=== PATIENT | male | born 1980 ===

== ENCOUNTER 2021-02-25 18:52 | Emergency (ER) | payer BC, SELFPAY ==
[2021-02-25] VITALS (14 sets, daily range): BP systolic 111–145; BP diastolic 70–91; PULSE 53–68; RESP 8–27; TEMP 36.2; O2SAT 96–99; BMI 28.2
--- NOTE | 2021-02-25 19:08 | DI.RAD.S_ITS ---
PROCEDURE: XR CHEST 1V INDICATIONS: chest pain TECHNIQUE: One view of the chest was acquired. COMPARISON: None. FINDINGS: Surgical changes and devices: None. Lungs and pleura: Lungs are clear. No pleural effusions or pneumothorax. Mediastinum: Mediastinal contours appear normal. Heart size is normal. Bones and chest wall: No suspicious bony lesions. Overlying soft tissues appear unremarkable. IMPRESSION: No acute cardiopulmonary abnormality Dictated by: Eliel Buckner M.D. on 02/25/2021 at 19:43 Approved by: Eliel Buckner M.D. on 02/25/2021 at 19:43
[2021-02-25 19:52] LABS: Add Manual Diff / Slide Review NO; Basophils Absolute Auto 0 /uL (0-100); Eosinophils Absolute Auto 200 /uL (0-450); Eosinophils Percent Auto 4.9 % (2-4); Hematocrit 40.7 % (41-53); Hemoglobin 14.2 g/dL (13.5-17.5); Lymphocytes Absolute Auto 1400 /uL (1100-4500); Lymphocytes Percent Auto 31.8 % (25-40); Mean Corpuscular HGB Conc 34.9 % (30-36); Mean Corpuscular Hemoglobin 29.9 PG (26-34); Mean Corpuscular Volume 85.8 fL (80-100); Monocytes Absolute Auto 500 /uL (0-900); Monocytes Percent Auto 10.7 % (3-14); Neutrophils Absolute Auto 2300 /uL (1500-7000); Neutrophils Percent Auto 51.6 % (50-75); Platelet Count 107 X10^3/uL (150-400); Red Blood Cell Count 4.75 X10^6/uL (4.5-5.9); Red Cell Distribution Width 12.8 % (11.6-14.8); White Blood Cell Count 4.5 X10^3/uL (4.5-11.0)
[2021-02-25 19:58] LABS: Alanine Aminotransferase 24 IU/L (<50); Albumin 4.5 g/dL (3.5-5.0); Albumin Globulin Ratio 1.7 (1.0-2.8); Alkaline Phosphatase 55 U/L (38-126); Aspartate Aminotransferase 54 IU/L (17-59); BUN Creatinine Ratio 22.2 (6-22); Bilirubin Total 0.4 mg/dL (0.2-1.3); Blood Urea Nitrogen 14 mg/dL (9-20); Calcium 9.6 mg/dL (8.4-10.2); Carbon Dioxide 31 mmol/L (22-32); Chloride 102 mmol/L (98-107); Creatine Kinase 58 U/L (55-170); Estimated Glomerular Filt Rate > 60.0 mL/min (>60); Globulin 2.7 g/dL (1.7-4.1); Glucose 85 mg/dL (70-100); HEMOLYSIS 19 (0-50); Lipase 120 U/L (23-300); Potassium 3.6 mmol/L (3.4-5.1); Sodium 142 mmol/L (137-145); Total Protein 7.2 g/dL (6.3-8.2)
[2021-02-25 20:09] LABS: Troponin I < 0.012 ng/mL (0.01-0.034)
[2021-02-25 21:50] LABS: D Dimer < 200 ng/mL (<230)
[2021-02-25 22:31] LABS: Troponin I < 0.012 ng/mL (0.01-0.034)
--- NOTE | 2021-02-25 23:58 | ED.CHESTPAIN ---
HPI - Chest Pain General Chief Complaint: Chest Pain Stated Complaint: Chest pain Time Seen by Provider: 02/25/21 21:02 Source: patient Mode of arrival: Ambulatory History of Present Illness HPI narrative: 40-year-old otherwise healthy gentleman was working out on his treadmill this evening and noted some left-sided chest pain he described as sharp within 2 minutes of starting his workout. He did only a minimal warm. He describes never experiencing pain quite like that before. Not associated with dyspnea diaphoresis or nausea. He resolved when he stepped off the treadmill and recurred when he was back on. 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 He is 7 days post his 1st Pfizer vaccine and was also concerned about the possibility of myocarditis or pericarditis. He describes recently no exertional dyspnea, orthopnea, abdominal pain, fevers, cough, chills, vomiting or diarrhea. Related Data Allergies Allergy/AdvReac Type Severity Reaction Status Date / Time No Known Drug Allergies Allergy Verified 02/25/21 19:04 Review of Systems Review of Systems Narrative: Remainder of complete review of systems is otherwise unremarkable except for that included in the HPI. Patient History Social History Smoking Status: Never smoker Smoking Status: Never smoker Substance Use Type: does not use Exam Narrative Exam Narrative: General: Healthy appearing, in no acute distress. Able to give a complete and coherent history. Well-nourished well-developed HEENT: Moist mucous membranes, normal sclera with reactive pupils, Neck: No JVD, supple Respiratory: Lungs are clear to auscultation, no wheezing no rales no rhonchi. Full and symmetrical air movement Cardiac: Regular rate and rhythm no murmurs no bruits Abdomen: Soft, nontender, good bowel tones, no flank pain Skin: Warm and dry, no rashes Neurologic: Grossly neurologically intact with no obvious asymmetries or abnormalities Extremities: No trauma, well perfused Psych: Cooperative, appropriate insight and affect Initial Vital Signs Initial Vital Signs: Vital Signs Temperature 97.1 F L 02/25/21 18:55 Pulse Rate 67 02/25/21 18:55 Respiratory Rate 18 02/25/21 18:55 Blood Pressure 145/87 H 02/25/21 18:55 Pulse Oximetry 97 02/25/21 18:55 Course Orders Ordered: ED Orders 02/25/21 18:56 EKG-12 Lead Routine 02/25/21 19:02 Complete Blood Count AUTO DIFF Stat Comprehensive Metabolic Panel Stat D Dimer Stat Lipase Stat Troponin & CK Cardiac Panel Stat 02/25/21 19:08 XR chest 1V Stat 02/25/21 21:40 Troponin I Stat Vital Signs Vital signs: Vital Signs - 8 hr 02/25/21 18:55 02/25/21 19:09 02/25/21 19:30 Temperature 97.1 F L Pulse Rate 67 67 68 Respiratory Rate 18 20 21 Blood Pressure 145/87 H Pulse Oximetry 97 96 96 02/25/21 20:00 Temperature Pulse Rate 63 Respiratory Rate 19 Blood Pressure Pulse Oximetry 96 MDM - Chest Pain Lab Data Result diagrams: 02/25/21 19:02 02/25/21 19:02 Labs: Lab Results 02/25/21 02/25/21 02/25/21 Range/Units 19:02 19:02 19:02 WBC 4.5 (4.5-11.0) X10^3/uL RBC 4.75 (4.5-5.9) X10^6/uL Hgb 14.2 (13.5-17.5) g/dL Hct 40.7 L (41-53) % MCV 85.8 (80-100) fL MCH 29.9 (26-34) PG MCHC 34.9 (30-36) % RDW 12.8 (11.6-14.8) % Plt Count 107 L (150-400) X10^3/uL Neut % (Auto) 51.6 (50-75) % Lymph % (Auto) 31.8 (25-40) % [place] % (Auto) 10.7 (3-14) % Eos % (Auto) 4.9 H (2-4) % Baso % (Auto) 1.0 (0-2) % Neut # (Auto) 2300 (9980-3800) /uL Lymph # (Auto) 1400 (6184-2027) /uL [place] # (Auto) 500 (0-900) /uL Eos # (Auto) 200 (0-450) /uL Baso # (Auto) 0 (0-100) /uL D-Dimer < 200 (<230) ng/mL Sodium 142 (137-145) mmol/L Potassium 3.6 (3.4-5.1) mmol/L Chloride 102 (98-107) mmol/L Carbon Dioxide 31 (22-32) mmol/L BUN 14 (9-20) mg/dL Creatinine 0.63 L (0.66-1.25) mg/dL Estimated GFR > 60.0 (>60) mL/min BUN/Creatinine Ratio 22.2 H (6-22) Glucose 85 (70-100) mg/dL Calcium 9.6 (8.4-10.2) mg/dL Total Bilirubin 0.4 (0.2-1.3) mg/dL AST 54 (17-59) IU/L ALT 24 (<50) IU/L Alkaline Phosphatase 55 (38-126) U/L Total Creatine Kinase 58 (55-170) U/L CK-MB (CK-2) TNP CK-MB (CK-2) Rel Index TNP Troponin I < 0.012 (0.01-0.034) ng/mL Total Protein 7.2 (6.3-8.2) g/dL Albumin 4.5 (3.5-5.0) g/dL Globulin 2.7 (1.7-4.1) g/dL Albumin/Globulin Ratio 1.7 (1.0-2.8) Lipase 120 (23-300) U/L 02/25/ Range/Units 21:40 WBC (4.5-11.0) X10^3/uL RBC (4.5-5.9) X10^6/uL Hgb (13.5-17.5) g/dL Hct (41-53) % MCV (80-100) fL MCH (26-34) PG MCHC (30-36) % RDW (11.6-14.8) % Plt Count (150-400) X10^3/uL Neut % (Auto) (50-75) % Lymph % (Auto) (25-40) % [place] % (Auto) (3-14) % Eos % (Auto) (2-4) % Baso % (Auto) (0-2) % Neut # (Auto) (9237-6316) /uL Lymph # (Auto) (1896-0112) /uL [place] # (Auto) (0-900) /uL Eos # (Auto) (0-450) /uL Baso # (Auto) (0-100) /uL D-Dimer (<230) ng/mL Sodium (137-145) mmol/L Potassium (3.4-5.1) mmol/L Chloride (98-107) mmol/L Carbon Dioxide (22-32) mmol/L BUN (9-20) mg/dL Creatinine (0.66-1.25) mg/dL Estimated GFR (>60) mL/min BUN/Creatinine Ratio (6-22) Glucose (70-100) mg/dL Calcium (8.4-10.2) mg/dL Total Bilirubin (0.2-1.3) mg/dL AST (17-59) IU/L ALT (<50) IU/L Alkaline Phosphatase (38-126) U/L Total Creatine Kinase (55-170) U/L CK-MB (CK-2) CK-MB (CK-2) Rel Index Troponin I < 0.012 (0.01-0.034) ng/mL Total Protein (6.3-8.2) g/dL Albumin (3.5-5.0) g/dL Globulin (1.7-4.1) g/dL Albumin/Globulin Ratio (1.0-2.8) Lipase (23-300) U/L Imaging Data Chest x-ray: Radiologist's Impression: FINDINGS:? ? Surgical changes and devices:? None.? ? Lungs and pleura:? Lungs are clear.? No pleural effusions or pneumothorax.? ? Mediastinum:? Mediastinal contours appear normal.? Heart size is normal.? ? Bones and chest wall:? No suspicious bony lesions.? Overlying soft tissues appear unremarkable.? ? IMPRESSION:? No acute cardiopulmonary abnormality ? ? Dictated by: Eliel Buckner M.D. on 02/25/2021 at 19:43? ?? ECG Data Interpretation: Sinus rhythm at a rate of 61 Nonspecific intraventricular conduction delay No acute ischemic changes MDM Narrative Medical decision making narrative: 40-year-old gentleman with brief left-sided chest pain shortly after starting a treadmill workout. Seven days post COVID vaccination. EKG is reassuring, chest x-ray is normal with no signs of cardiomyopathy or large cardiac silhouette. Labs are reassuring with no evidence of infection, troponin x2 is normal and D-dimer is not elevated. At this point I think this is musculoskeletal chest pain and not cardiac. He has no cardiac history and no additional risk factors. He is reassured and will ask him to follow-up with his primary care physician if he continues to have similar symptom he may benefit from outpatient cardiac stress testing. Discharge Plan Departure Patient Disposition: Home Clinical Impression: Atypical chest pain Instructions: DI for Atypical Chest Pain Activity Restrictions/Additional Instructions: Thank you for coming in today Your workup was very reassuring. You have a nonspecific intraventricular conduction delay without any evidence of acute coronary syndrome or cardiac abnormalities that could have been related to recent Pfizer vaccine. Your chest x-ray is normal, D-dimer is normal troponin x2 is normal and remainder of your chemistries and electrolytes are equally reassuring I you have new or worsening symptoms, please feel free to return to the ER.
[2021-02-26] VITALS: BP 130/64; PULSE 54; RESP 20; O2SAT 95
== END 2021-02-26 00:30 | disposition home or self-care (01) ==
PROVIDERS: Emergency Provider Emergency Medicine
DX: R07.89 Other chest pain (principal)
CPT/HCPCS: 36415; 71045; 80053; 82550; 83690; 84484; 85025; 85379; 93005; 93010; 99284

== ENCOUNTER → 2021-11-30 09:55 | Outpatient (CLI) | payer BC, SELFPAY ==
[2021-11-30 10:27] LABS: Semen Sperm Prescence Post-Vas Absent (ABSENT)
== END ==
PROVIDERS: Referring Provider Specialist; Visit Provider Specialist
DX: Z98.52 Vasectomy status (principal)
CPT/HCPCS: 89321